=== PATIENT | female | born 1965 | race Caucasian/White ===

== ENCOUNTER 2019-05-03 15:03 | Emergency (ER) | payer BC, OTHER ==
[~2019-05-03] VITALS: Ht 157.5 cm; Wt 59.9 kg
[2019-05-03 16:02] LABS: BASOPHILS % (AUTO) 0.8 % (0.0-2.0); EOSINOPHILS # (AUTO) 0.1 K/uL (0.0-0.7); EOSINOPHILS % (AUTO) 2.2 % (0.0-7.0); HEMATOCRIT 39.3 % (31.2-41.9); HEMOGLOBIN 13.2 g/dL (10.9-14.3); LYMPHOCYTES # (AUTO) 1.5 K/uL (20.0-40.0); LYMPHOCYTES % (AUTO) 28.3 % (20.5-51.5); MEAN CORPUSCULAR HEMOGLOBIN 29.8 uug (24.7-32.8); MEAN CORPUSCULAR HGB CONC 34 g/dL (32.3-35.6); MONOCYTES # (AUTO) 0.5 K/uL (2.0-10.0); MONOCYTES % (AUTO) 9.2 % (0.0-11.0); NEUTROPHILS # (AUTO) 3.1 K/uL (1.8-8.9); NEUTROPHILS % (AUTO) 59.5 % (38.5-71.5); PLATELET COUNT (AUTO) 239 K/uL (179-408); RED BLOOD CELL COUNT(AUTO) 4.41 MIL/uL (3.63-4.92); WHITE BLOOD COUNT (AUTO) 5.2 K/uL (3.8-11.8)
[2019-05-03] MEDS ORDERED: WARFARIN SODIUM 7.5 MG TABLET ONE (16:56)
[2019-05-03] MEDS ORDERED: WARFARIN SODIUM 5 MG TABLET PO ONE (17:00)
--- NOTE | 2019-05-03 17:35 | NUR ---
PT WAS EVALUATED BY DR ARNOLD. PT WAS D/C'd TO HOME. D/C INSTRUCTIONS GIVEN TO THE PT. GAIT IS STABLE. NO S/S OF DISTTRESS AT THIS TIME.
[2019-05-03 17:36] VITALS: BP 141/71
== END 2019-05-03 17:37 | disposition home or self-care (01) ==
LOC: ER 15:03
DX: S90.01XA Contusion of right ankle, initial encounter (principal); R79.1 Abnormal coagulation profile; W22.8XXA Striking against or struck by other objects, initial encounter; Y93.89 Activity, other specified; Y92.89 Other specified places as the place of occurrence of the external cause; Y99.8 Other external cause status
CPT/HCPCS: 36415; 73590; 73610; 85025; 85610; A4663

== ENCOUNTER 2019-06-20 16:58 | Emergency (ER) | payer BC, OTHER ==
[~2019-06-20] VITALS: Ht 157.5 cm; Wt 56.7 kg
--- NOTE | 2019-06-20 18:34 | NUR ---
Patient discharged to home in stable conditon. Written and verbal after care instructions given. Patient verbalizes understanding of instructions.
[2019-06-20 18:35] VITALS: BP 133/70
== END 2019-06-20 18:36 | disposition home or self-care (01) ==
LOC: ER 16:58
DX: M25.531 Pain in right wrist (principal); W19.XXXA Unspecified fall, initial encounter; Y93.89 Activity, other specified; Y92.89 Other specified places as the place of occurrence of the external cause; Y99.8 Other external cause status
CPT/HCPCS: 36415; 73110; 85730; A4663

== ENCOUNTER 2019-08-03 18:21 | Emergency (ER) | payer BC, OTHER ==
[~2019-08-03] VITALS: Ht 157.5 cm; Wt 56.7 kg
[2019-08-03] MEDS ORDERED: WARF6TAB23 PO (18:28)
--- NOTE | 2019-08-03 19:01 | NUR ---
URINE SENT TO LAB
[2019-08-03 19:06] LABS: *BILIRUBIN,URIN NEGATIVE (NEGATIVE); *BLOOD, URINE 2+ (NEGATIVE); *CLARITY,URINE SLIGHTLY CLOUDY (CLEAR); *KETONES,URINE TRACE (NEGATIVE); *UROBILINOGEN,URINE 0.2 E.U./dl (NORMAL); LEUKOCYTE ESTERASE ,URINE 2+ (NEGATIVE); NITRITE, URINE POSITIVE (NEGATIVE); PH,URINE 5.5 (5.0-8.0); UGLUCOSE NEGATIVE (NEGATIVE)
--- NOTE | 2019-08-03 19:12 | NUR ---
ASSUMED CARE OF PATIENT , NO ACUTE DISTRESS NOTED. VSS
[2019-08-03 19:13] LABS: *COLOR,URINE YELLOW (YELLOW); WBC,URINE 80-100 /HPF (0-3)
[2019-08-03 19:14] LABS: BACTERIA,URINE MANY /HPF (NONE SEEN); SQUAMOUS EPITHELIAL CELL,UR MODERATE /HPF (NONE SEEN)
[2019-08-03] MEDS ORDERED: AZITHROMYCIN 250 MG TABLET ONE (19:21)
[2019-08-03] MEDS ORDERED: CEFTRIAXONE 500 MG VIAL ONE (19:21)
[2019-08-03] MEDS ORDERED: LIDOCAINE HCL 2% 20 ML VIAL ONE (19:23)
--- NOTE | 2019-08-03 19:28 | NUR ---
Patient discharged to home in stable conditon. Written and verbal after care instructions given. Patient verbalizes understanding of instructions. aMBULATED FROM er WITH STABLE GAIT. ALL BELONGINGS WITH PATIENT.
[2019-08-03] MEDS ORDERED: AZITHROMYCIN 250 MG TABLET PO ONE (19:30)
[2019-08-03] MEDS ORDERED: CEFTRIAXONE 500 MG VIAL IM ONE (19:30)
[2019-08-03 19:31] VITALS: BP 128/70
[2019-08-06 00:06] LABS: *GC NAA Negative (Negative); *TRIC.VAG. NAA Negative (Negative)
== END 2019-08-03 19:31 | disposition home or self-care (01) ==
LOC: ER 18:23
DX: N39.0 Urinary tract infection, site not specified (principal); Z88.8 Allergy status to other drugs, medicaments and biological substances; Z79.01 Long term (current) use of anticoagulants
CPT/HCPCS: 81000; 81001; 87086; 87186; 87491; 96372; 99283; J0696; J3490; A4663; Q0144